=== PATIENT | female | born 1945 | race Caucasian/White ===

== ENCOUNTER → 2022-02-15 08:09 | Outpatient (CLI) | payer OTHER, SELFPAY ==
--- NOTE | 2022-02-15 | DI.MG.S_ITS ---
UNILATERAL RIGHT DIGITAL DIAGNOSTIC MAMMOGRAM 3D/2D WITH ADDITIONAL VIEWS: 02/15/2022 CLINICAL: Additional evaluation requested from prior study. Comparison is made to exams dated: 12/29/2021 mammogram, 04/02/2019 mammogram, 03/27/2018 mammogram, and 03/15/2017 mammogram - [facility]. The tissue of right breast is extremely dense, which lowers the sensitivity of mammography. There are new grouped fine calcifications in the right breast at 9 o'clock anterior depth. These are seen in additional views. No other significant masses or calcifications are seen in the breast. IMPRESSION: SUSPICIOUS OF MALIGNANCY The new grouped fine calcifications in the right breast are at a moderate suspicion for malignancy. A stereotactic biopsy is recommended. These findings and recommendation were discussed with the patient by Dr Avina. Based on the Tyrer Cuzick model (a risk assessment model) the patient's lifetime risk is 10.4% and her 10 year risk is 0.0%. According to the ACR, ACS, and NCCN guidelines, an annual breast MRI exam along with mammogram is recommended if the patient's lifetime risk is 20% or greater. This exam was interpreted at Station ID: [id number]. NOTE: For mammograms, a report in lay terms will be sent to the patient. Approximately 15% of breast malignancies will not be visualized mammographically. In the management of a palpable breast mass, a negative mammogram must not discourage biopsy of a clinically suspicious lesion. Electronically Signed By: Darius Morrow acr/:02/15/2022 08:48:26 letter sent: Biopsy Required ACR BI-RADS Category 4b: Suspicious abnormality - intermediate suspicion of malignancy [id number]
== END ==
PROVIDERS: Referring Provider Family Medicine; Visit Provider Family Medicine
DX: R92.8 Other abnormal and inconclusive findings on diagnostic imaging of breast (principal); R92.1 Mammographic calcification found on diagnostic imaging of breast
CPT/HCPCS: 77065; G0279